=== PATIENT | female | born 1940 | race Caucasian/White ===

== ENCOUNTER 2018-11-25 13:33 | Inpatient (IN) | payer MEDICARE ==
[~2018-11-25] VITALS: Ht 175.3 cm; Wt 50.8 kg
--- OUTSIDE RECORDS SUMMARY | 2018-11-25 13:34 | XMS REPORT ---
[facility] Address Unknown Phone Unavailable Care Team Providers Care Billing Administrator Name Role Phone Unavailable Unavailable Payers Payer Name Policy Type Policy Number Effective Date Expiration Date Problems This patient has no known problems. Allergies, Adverse Reactions, Alerts Allergy Name Allergy Type Status Severity Reaction(s) Onset Date Inactive Date Treating Clinician Comments No Known Allergies DA Active U 2018-11-15 00:00:00 Medications This patient has no known medications. Results Test Description Test Time Test Comments Text Results Atomic Results Result Comments DRUGS OF ABUSE SCREEN UR 2018-11-15 05:48:00 URN COCAINE (test code=COCAURN) NEGATIVE NEGATIVE URN CANNABINOIDS (test code=CANNABURN) NEGATIVE NEGATIVE URN AMPHETAMINE (test code=AMPHETURN) NEGATIVE NEGATIVE URN BARBITURATE (test code=BARBITURN) NEGATIVE NEGATIVE URN BENZODIAZEPINE (test code=BENZOURN) NEGATIVE NEGATIVE Cut-off value:200 ng/mL URN OPIATES (test code=OPIATURN) NEGATIVE NEGATIVE Cut-off value:2000 ng/mL URN PHENCYCLIDINE (PCP) (test code=PHENCURN) NEGATIVE NEGATIVE Cutoffs:Barbiturates 200 ng/mLBenzodiazepines 200 ng/mLTHC Cannabinoids 50 ng/mLOpiates(Morphine) 2000 ng/mLAmphetamine 1000 ng/mLCocaine 300 ng/mLPCP phencyclidine 25 ng/mL Unconfirmed screening results shouldnot be used for non-medical purposes. URINALYSIS [id number] 05:24:00* Test Item Value Reference Range Comments UA COLOR (test code=COLU) YELLOW YEL/STRAW UA APPEARANCE (test code=APPU) SL CLOUDY CLEAR UA GLUCOSE DIPSTICK (test code=DGLUU) NEGATIVE NEGATIVE UA BILIRUBIN DIPSTICK (test code=BILU) NEGATIVE NEGATIVE UA KETONE DIPSTICK (test code=KETU) 2+ NEGATIVE UA SPECIFIC GRAVITY (test code=SGU) 1.018 1.005-1.030 UA BLOOD DIPSTICK (test code=WAGNER) 1+ NEGATIVE UA PH DIPSTICK (test code=NAYE) 5.0 5.0-7.0 UA PROTEIN DIPSTICK (test code=PROU) 1+ NEGATIVE UA UROBILINIOGEN DIPSTICK (test code=URO) 0.2 mg/dL 0.2-1.0 UA NITRITE DIPSTICK (test code=ROBER) NEGATIVE NEGATIVE UA LEUKOCYTE ESTERASE DIPSTICK (test code=LEUU) 3+ NEGATIVE UA WBC (test code=WBCU) 21-50 WBC/HPF 0-3 UA RBC (test code=RBCU) 4-10 RBC/HPF 0-3 UA BACTERIA (test code=BACU) TRACE /HPF NONE SEEN UA SQUAMOUS CELLS (test code=SQU) 0-5 /HPF NONE SEEN UA MUCUS (test code=MUCU) 1+ /LPF NONE SEEN COMMENTS: Clean CatchBASIC METABOLIC [id number] 04:38:00* Test Item Value Reference Range Comments SODIUM (test code=NA) 138 mEq/L 134-147 POTASSIUM (test code=K) 3.9 mEq/L 3.4-5.0 CHLORIDE (test code=CL) 103 mEq/L 100-108 CARBON DIOXIDE (test code=CO2) 26 mEq/L 21-33 ANION GAP (test code=GAP) 13 0-20 GLUCOSE (test code=GLU) 142 mg/dL 70-110 BLOOD UREA NITROGEN (test code=BUN) 16 mg/dL 7-18 GLOMERULAR FILTRATION RATE (test code=GFR) 60.6 70-80 Units of measure=ml/min/1.73 m2 CREATININE (test code=CREAT) 0.9 mg/dL 0.6-1.3 CALCIUM (test code=CA) 8.7 mg/dL 8.0-10.5 HEPATIC FUNCTION [id number] 04:38:00* Test Item Value Reference Range Comments TOTAL PROTEIN (test code=PROT) 7.2 g/dL 6.4-8.2 ALBUMIN (test code=ALB) 3.40 g/dL 3.4-5.0 BILIRUBIN TOTAL (test code=BILT) 1.10 mg/dL 0.0-1.0 BILIRUBIN DIRECT (test code=BILD) 0.20 MG/DL 0.0-0.30 BILIRUBIN INDIRECT (test code=BILIND) 0.90 MG/DL SGOT/AST (test code=AST) 35 IUnit/L 15-37 SGPT/ALT (test code=ALT) 33 IUnit/L 15-65 ALKALINE PHOSPHATASE TOTAL (test code=ALKP) 90 IUnit/L 20-125 CREATINE KINASE (CK)2018-11-15 04:38:00* Test Item Value Reference Range Comments CREATINE KINASE (CK) (test code=CK) 348 35-232 Result is in INTERNATIONAL UNITS/LITER [id number] 04:38:00* Test Item Value Reference Range Comments LIPASE (test code=LIP) 136 IUnit/L 73-393 [id number] 04:38:00* Test Item Value Reference Range Comments MAGNESIUM (test code=MAG) 1.80 mg/dL 1.8-2.4 [id number] 04:38:00* Test Item Value Reference Range Comments ALCOHOL (test code=ALC) < 0.003 G/dL <0.003 Ethyl Alcohol Interpretation: 0.100 gm/dL - Legally Intoxicated 0.300-0.400 gm/dL - Severely Intoxicated >0.400 gm/dL - Potentially LethalResults are for Medical purposes only, and not for Legal orEmployment evaluation purposes. BASIC METABOLIC [id number] 04:33:00* Test Item Value Reference Range Comments SODIUM (test code=NA) mEq/L 134-147 POTASSIUM (test code=K) mEq/L 3.4-5.0 CHLORIDE (test code=CL) mEq/L 100-108 CARBON DIOXIDE (test code=CO2) mEq/L 21-33 ANION GAP (test code=GAP) 0-20 GLUCOSE (test code=GLU) mg/dL 70-110 BLOOD UREA NITROGEN (test code=BUN) mg/dL 7-18 GLOMERULAR FILTRATION RATE (test code=GFR) 70-80 CREATININE (test code=CREAT) mg/dL 0.6-1.3 CALCIUM (test code=CA) mg/dL 8.0-10.5 HEPATIC FUNCTION [id number] 04:33:00* Test Item Value Reference Range Comments TOTAL PROTEIN (test code=PROT) g/dL 6.4-8.2 ALBUMIN (test code=ALB) g/dL 3.4-5.0 BILIRUBIN TOTAL (test code=BILT) mg/dL 0.0-1.0 BILIRUBIN DIRECT (test code=BILD) MG/DL 0.0-0.30 SGOT/AST (test code=AST) IUnit/L 15-37 SGPT/ALT (test code=ALT) IUnit/L 15-65 ALKALINE PHOSPHATASE TOTAL (test code=ALKP) IUnit/L 20-125 CREATINE KINASE (CK)2018-11-15 04:33:00* Test Item Value Reference Range Comments CREATINE KINASE (CK) (test code=CK) 35-232 [id number] 04:33:00* Test Item Value Reference Range Comments LIPASE (test code=LIP) IUnit/L 73-393 [id number] 04:33:00* Test Item Value Reference Range Comments MAGNESIUM (test code=MAG) mg/dL 1.8-2.4 [id number] 04:33:00* Test Item Value Reference Range Comments ALCOHOL (test code=ALC) < 0.003 G/dL <0.003 Ethyl Alcohol Interpretation: 0.100 gm/dL - Legally Intoxicated 0.300-0.400 gm/dL - Severely Intoxicated >0.400 gm/dL - Potentially LethalResults are for Medical purposes only, and not for Legal orEmployment evaluation purposes. BASIC METABOLIC [id number] 04:33:00* Test Item Value Reference Range Comments SODIUM (test code=NA) 138 mEq/L 134-147 POTASSIUM (test code=K) 3.9 mEq/L 3.4-5.0 CHLORIDE (test code=CL) 103 mEq/L 100-108 CARBON DIOXIDE (test code=CO2) 26 mEq/L 21-33 ANION GAP (test code=GAP) 13 0-20 GLUCOSE (test code=GLU) 142 mg/dL 70-110 BLOOD UREA NITROGEN (test code=BUN) 16 mg/dL 7-18 GLOMERULAR FILTRATION RATE (test code=GFR) 60.6 70-80 Units of measure=ml/min/1.73 m2 CREATININE (test code=CREAT) 0.9 mg/dL 0.6-1.3 CALCIUM (test code=CA) 8.7 mg/dL 8.0-10.5 HEPATIC FUNCTION [id number] 04:33:00* Test Item Value Reference Range Comments TOTAL PROTEIN (test code=PROT) g/dL 6.4-8.2 ALBUMIN (test code=ALB) 3.40 g/dL 3.4-5.0 BILIRUBIN TOTAL (test code=BILT) mg/dL 0.0-1.0 BILIRUBIN DIRECT (test code=BILD) 0.20 MG/DL 0.0-0.30 SGOT/AST (test code=AST) 35 IUnit/L 15-37 SGPT/ALT (test code=ALT) 33 IUnit/L 15-65 ALKALINE PHOSPHATASE TOTAL (test code=ALKP) IUnit/L 20-125 CREATINE KINASE (CK)2018-11-15 04:33:00* Test Item Value Reference Range Comments CREATINE KINASE (CK) (test code=CK) 35-232 [id number] 04:33:00* Test Item Value Reference Range Comments LIPASE (test code=LIP) 136 IUnit/L 73-393 [id number] 04:33:00* Test Item Value Reference Range Comments MAGNESIUM (test code=MAG) 1.80 mg/dL 1.8-2.4 [id number] 04:33:00* Test Item Value Reference Range Comments ALCOHOL (test code=ALC) < 0.003 G/dL <0.003 Ethyl Alcohol Interpretation: 0.100 gm/dL - Legally Intoxicated 0.300-0.400 gm/dL - Severely Intoxicated >0.400 gm/dL - Potentially LethalResults are for Medical purposes only, and not for Legal orEmployment evaluation purposes. PROTHROMBIN [id number] 04:22:00* Test Item Value Reference Range Comments PROTHROMBIN TIME PATIENT (test code=PTP) 12.5 SECONDS 9.3-12.9 INTERNATIONAL NORMAL RATIO (test code=INR) 1.1 0.8-1.2 TARGET INR BY INDICATION Indication INR1. Prophylaxis of venous thrombosis 2.0 - 3.0 (orthopedic surgery), Prophylaxis of venous thrombosis (other than high-risk surgery), Treatment of Deep Vein Thrombosis/Pulmonary Embolism, Prevention of systemic embolism - Tissue heart valves, Acute Myocardial Infarction (to prevent systemic embolism), Valvular heart disease, Atrial Fibrillation, Bileaflet mechanical valve in aortic position.2. Mechanical prosthetic valves (high risk), 2.5 - 3.5 Presence of Lupus Anticoagulant or Antiphospholipid Antibodies, Prevention of systemic embolism - Acute Myocardial Infarction (to prevent recurrent infarct). THROMBOPLASTIN TIME [id number] 04:22:00* Test Item Value Reference Range Comments THROMBOPLASTIN TIME PARTIAL (test code=PTT) 28.3 Seconds 25.0-39.5 Therapeutic Range: 61.8-83.8 Sec Effective 11/16/2013 CBC W/AUTO [id number] 04:12:00* Test Item Value Reference Range Comments WHITE BLOOD CELL (test code=WBC) 18.91 x10 3/uL 4.5-11.0 RED BLOOD CELL (test code=RBC) 4.24 x10 6/uL 3.54-5.02 HEMOGLOBIN (test code=HGB) 13.3 g/dL 11.0-15.0 HEMATOCRIT (test code=HCT) 40.7 % 33.0-45.0 MEAN CELL VOLUME (test code=MCV) 96.0 fL 81.0-99.0 MEAN CELL HGB (test code=MCH) 31.4 pg 27.0-33.0 MEAN CELL HGB CONCETRATION (test code=MCHC) 32.7 g/dL 33.0-37.0 RED CELL DISTRIBUTION WIDTH CV (test code=RDW) 11.9 % 11.5-14.5 RED CELL DISTRIBUTION WIDTH SD (test code=RDW-SD) 42.0 fL 37.0-54.0 PLATELET COUNT (test code=PLT) 236 x10 3/uL 150-400 MEAN PLATELET VOLUME (test code=MPV) 11.1 fL 7.0-9.0 NEUTROPHIL % (test code=NT%) 90.2 % 56.0-77.0 IMMATURE GRANULOCYTE % (test code=IG%) 0.6 % 0.0-2.0 LYMPHOCYTE % (test code=LY%) 3.4 % 14.0-32.0 MONOCYTE % (test code=MO%) 5.6 % 4.8-9.0 EOSINOPHIL % (test code=EO%) 0.0 % 0.3-3.7 BASOPHIL % (test code=BA%) 0.2 % 0.0-2.0 NUCLEATED RBC % (test code=NRBC%) 0.0 % 0-0 NEUTROPHIL # (test code=NT#) 17.07 x10 3/uL 2.0-7.6 IMMATURE GRANULOCYTE # (test code=IG#) 0.11 x10 3/uL 0.00-0.03 LYMPHOCYTE # (test code=LY#) 0.64 x10 3/uL 1.0-3.8 MONOCYTE # (test code=MO#) 1.05 x10 3/uL 0.1-0.8 EOSINOPHIL # (test code=EO#) 0.00 x10 3/uL 0.0-0.2 BASOPHIL # (test code=BA#) 0.04 x10 3/uL 0.0-0.2 NUCLEATED RBC # (test code=NRBC#) 0.00 x10 3/uL 0.0-0.1 MANUAL DIFF REQUIRED (test code=MDIFF) NO - XR CHEST 1 [id number] 03:18:00 FAX: Carlos Uribe MD [phone] [place]: St: REG Name: EPIFANIO CUBA [facility] : [birth year] Age/S: 77/F [address] [place] [address] Unit #: [id number] Loc: [place] [address] Phys: Carlos Mariscal MD Acct: [id number] Dis Date: Status: REG ER PHONE #: [phone] Exam Date: 11/15/2018 0304 FAX #: [phone] Reason: Seizure Adult EXAMS: CPT CODE: [id number] XR CHEST 1 V 53612 Chest, single view dated 11/15/2018. HISTORY: Weakness. Seizure. Fall. No prior studies are available comparison. The heart is normal in size. The car diomediastinal shadow appears within normal limits. The lungs appear lisa r of acute disease. The pulmonary vasculature is normal in caliber. No a cute pleural space abnormalities are identified. The bones are osteopenic . Two vertebral compression deformities are noted at the thoracolumbar junction and are of indeterminant age. IMPRESSION: 1. No radiographic evidence of acute cardiopulmonary disease. 2. Two ve rtebral compression deformities are noted at the thoracolumbar junction, age indeterminate. SL: 131 Electronically S igned by Dhiraj Rueda on 11/15/2018 at 0318 Reported and signed by: Jass Rueda M.D. CC: Carlos Mariscal MD Technologist: Ric Kingston Trnmird Date/Time/By: 11/15/2018 (031) : By: Khadar [facility] Print D/T: S: 11/15/2018 (0321) PAGE 1 Signed Report [id number] 02:41:00* Test Item Value Reference Range Comments GLUBED (test code=GLUBED) 154 MG/DL 70-110 Performed by certified gripper machine operator at [facility] - CT HEAD/BRAIN W/O [id number] 00:00:00 Name: EPIFANIO NINA [facility] : 1940 Age/S: 77 / F [address] [place] [address] Unit #: [id number] Loc: [place] [address] Phys: Carlos Mariscal MD Acct: [id number] Dis Date: Status: REG ER PHONE #: [phone] Exam Date: 11/15/2018 0256 FAX #: [phone] Reason: Seizure EXAMS: CPT CODE: [id number] CT HEAD/BRAIN W/O CONT [id number] EXAM: CT Head Without Contrast EXAM DATE/TIME: 11/15/2018 2:24 AM CLINICAL HISTORY: 77 years old, female; Pain; Headache; Additional info: Seizure TECHNIQUE: Axial computed tomography images of the head/brain without contrast. All CT scans at this facility use at least one of these dose optimization techniques: automated exposure control; mA and/or kV adjustment per patient size (includes targeted exams where dose is matched to clinical indication); or iterative reconstruction. Coronal and sagittal reformatted images were created and reviewed. COMPARISON: No relevant prior studies available. FINDINGS: Brain: Minimal decreased attenuation of the supratentorial white matter is likely secondary to chronic microvascular ischemia. No acute intracranial hemorrhage. Ventricles: Ventricular and subarachnoid spaces are age appropriate. Bones/joints: Normal. No acute fracture. Sinuses: Normal as visualized. No acute sinusitis. Mastoid air cells: Normal as visualized. No mastoid effusion. Soft tissues: Normal. Vasculature: Intracranial vascular calcification. IMPRESSION: No acute intracranial abnormality. at 0348 Reported and signed by: Chris Bear M.D. PAGE 1 Signed Report (CONTINUED) Name: EPIFANIO NINA [facility] : 1940 Age/S: 77 / F [address] [place] [address] Blvd Unit #: [id number] Loc: [place] [address] Phys: Carlos Mariscal MD Acct: [id number] Dis Date: Status: REG ER PHONE #: [phone] Exam Date: 11/15/2018 0256 FAX #: [phone] Reason: Seizure EXAMS: CPT CODE: [id number] CT HEAD/BRAIN W/O CONT [id number] <Continued> CC: Carlos Mariscal MD Technologist:RT Bennie(R) CTDI: DLP: Trnscb Date/Time: 11/15/2018 (347) [id number] Orig Print D/T: S: 11/15/2018 (347) CTDI: DLP: PAGE 2 Signed Report
--- NOTE | 2018-11-25 15:01 | Diagnostic Imaging Report ---
Examination: CT head without contrast Clinical Indication: Confusion. Altered mental status. Technique: Transaxial noncontrast images from the skull base through the vertex were obtained. Sagittal and coronal reformatted images were done. Dose modulation, iterative reconstruction, and/or weight based adjustment of the mA/kV was utilized to reduce the radiation dose to as low as reasonably achievable. Comparison: None. Findings: Scalp: No abnormalities. Bones: Intact. No fractures. No blastic or lytic lesions. Brain sulci: Mild volume loss for patient's age. Ventricles: No hydrocephalus. Extra-axial space: No abnormalities. Parenchyma: No abnormal densities. No masses, hemorrhage, or acute or chronic cortical based vascular insults. Suprasellar region: No abnormalities. Craniocervical junction: The foramen magnum is patent. No Chiari one malformation. Impression: 1. No acute intracranial abnormality. 2. Mild volume loss. Signed by: Dr. Kim White M.D. on 11/25/2018 2:58 PM
[2018-11-25 15:23] LABS: BASOPHILS # (AUTO) 0.1 (0.0-0.1); BASOPHILS % 0.7 % (0.0-1.0); EOSINOPHILS # (AUTO) 0.1 (0.0-0.4); EOSINOPHILS % 0.7 % (0.0-6.0); HEMATOCRIT 35.7 % (34.2-44.1); HEMOGLOBIN 11.7 g/dL (12.0-16.0); LYMPHOCYTES # (AUTO) 1.3 (1.0-3.2); LYMPHOCYTES % 11.7 % (18.0-39.1); MEAN CORPUSCULAR HEMOGLOBIN 30.2 pg (28-32); MEAN CORPUSCULAR HGB CONC 32.8 g/dL (31-35); MEAN CORPUSCULAR VOLUME 92.2 fL (81-99); MONOCYTES # (AUTO) 0.8 (0.2-0.8); MONOCYTES % 7.3 % (4.4-11.3); NEUTROPHILS % 78.9 % (38.7-80.0); PLATELET COUNT 542 x10e3/uL (140-360); RED BLOOD COUNT 3.87 x10e6/uL (3.6-5.1); RED CELL DISTRIBUTION WIDTH 12.3 % (11.7-14.4)
[2018-11-25 15:37] LABS: ALANINE AMINOTRANSFERASE 23 IU/L (0-55); ALBUMIN 2.8 g/dL (3.5-5.0); ALBUMIN/GLOBULIN RATIO 0.9 (0.8-2.0); ALKALINE PHOSPHATASE 88 IU/L (40-150); ANION GAP 12.5 mmol/L (8-16); BLOOD UREA NITROGEN 20 mg/dL (7-26); BUN/CREATININE RATIO 29 (6-25); CALCIUM 8.9 mg/dL (8.4-10.2); CARBON DIOXIDE 25 mmol/L (22-29); CHLORIDE 103 mmol/L (98-107); CREATINE KINASE 78 IU/L (29-168); EST GLOMERULAR FILTRATION RATE > 60 ML/MIN (60-); GLUCOSE 101 mg/dL (74-118); POTASSIUM 4.5 mmol/L (3.5-5.1); SODIUM 136 mmol/L (136-145)
[2018-11-25 16:13] LABS: CLARITY,URINE HAZY (CLEAR); COLOR,URINE YELLOW (YELLOW); LEUKOCYTE ESTERASE ,URINE TRACE (NEGATIVE); NITRITE,URINE NEGATIVE (NEGATIVE); PROTEIN,URINE DIPSTICK TRACE (NEGATIVE)
[2018-11-25 16:14] LABS: BACTERIA,URINE MODERATE /HPF; BILIRUBIN,URINE NEGATIVE (NEGATIVE); EPITHELIAL CELLS,URINE MODERATE /LPF; KETONES,URINE NEGATIVE (NEGATIVE); MUCUS,URINE FEW (RARE); RBC,URINE 0-5 /HPF (0-5); URINE UROBILINOGEN 0.2 mg/dL (0.2 - 1)
[2018-11-25] MEDS: CEFTRIAXONE SOD 1 GM/NS 50 ML 50 ML IV SCH (16:30)
[2018-11-25 17:59] LABS: AMPHETAMINES SCREEN,URINE NEGATIVE (NEGATIVE); BENZODIAZEPINES SCREEN,URINE NEGATIVE (NEGATIVE); PHENCYCLIDINE SCREEN,URINE NEGATIVE (NEGATIVE)
[2018-11-25 18:19] LABS: THYROID STIMULATING HORMONE 3.641 uIU/mL (0.350-4.940)
--- NOTE | 2018-11-25 18:30 | NUR ---
Pt received from ER via stretcher. Alert and oriented x2, pleasantly confused. Pt oriented to staff and surroundings. Encouraged to press call jaeger if help needed. Emotional support given. Will endorse to next shift
[2018-11-25 18:37] VITALS: BP 110/59
--- NOTE | 2018-11-25 19:20 | NUR ---
ROUNDS COMPLETED WITH MORNING NURSE. PT ALERT TO NAME. DISORIENTED TO PLACE, TIME, AND SITUATION. RESP EVEN AND UNLABORED. C/O RIGHT LEG PAIN UPON MOVEMENT. ORIENTED TO CALL [facility]. BED LOW AND LOCKED POSITION. BED ALARM ON. WILL CONTINUE TO MONITOR.
[2018-11-25 19:45] VITALS: BP 103/55
[2018-11-25 20:00] VITALS: BP 103/55
--- NOTE | 2018-11-25 20:06 | NUR ---
SPOKE WITH DR. GRAFF REGARDING PTs RIGHT LEG PAIN. ORDERED TYLENOL 650MG PO EVERY 8 HOURS PRN PAIN.
[2018-11-25] MEDS: ACETAMINOPHEN 325 MG TAB PO PRN (20:55)
[2018-11-26] VITALS (8 sets, daily range): BP systolic 103–119; BP diastolic 51–57
--- NOTE | 2018-11-26 01:16 | Consultation ---
DATE OF CONSULTATION: November 25, 2018 NEUROLOGY CONSULTATION HISTORY OF PRESENT ILLNESS: Ms. Fountain is a 78-year-old right hand dominant woman without significant past medical history, admitted to [facility] on November 25, 2018, with confusion and difficulty walking. On November 15, 2018, the patient fell at approximately 0300 while taking her trash to the curb. The cause of Ms. Fountain's fall is unknown. She was subsequently found by the man who delivers her newspaper. This person alerted emergency medical services and Ms. Fountain was taken to [facility] for evaluation. The result of the patient's evaluation in the emergency center are not known. The patient's son, who is at the bedside and provides most of the history, reports receiving a telephone call at approximately 0630 in the morning informing him his mother was ready to be discharged from the emergency center. Since her fall, Ms. Fountain has stayed with her son at his home. During this time, Ms. Fountain's son reports the patient has been confused and disoriented. Unfortunately, when questioned further, the patient's son is unable to provide additional details. When asked when the confusion began, the patient's son reports the confusion may have started 2 or 3 months ago as this was the last time he saw his mother. Since her fall on November 15, 2018, the patient has been unable to walk. She reports pain in her legs, especially her right leg, which prohibits her from walking. Unfortunately, neither the patient nor her son is able to further describe her symptoms. Ms. Fountain was brought to the emergency center at [facility] on November 25, 2018, for further evaluation of the above symptoms. The patient's son reports Ms. Jamess symptoms did not significantly worsen recently. However, he is concerned regarding her confusion and the fact she has been unable to walk for the past week and a half. Upon arrival in the emergency center, the patient was afebrile with a blood pressure of 118/53 mmHg and a pulse of 85 beats per minute. Other than disorientation, the patient's neurological examination was documented as being nonfocal. A CT of the brain without contrast was performed while the patient was in the emergency center. This study did not show evidence of recent large territorial ischemia or hemorrhage. Ms. Fountain will be admitted to [facility] for further evaluation and treatment of her symptoms. REVIEW OF SYSTEMS: Unable to obtain as the patient is encephalopathic. PAST MEDICAL HISTORY: None. PAST SURGICAL HISTORY: None. PAST HOSPITALIZATIONS: None. FAMILY MEDICAL HISTORY: The patient's paternal and maternal grandparents are . Their medical histories are unknown. The patient's father is . His medical history is unknown. Ms. Fountain's mother is from Parkinson disease. The patient has one sibling, a brother, who is alive. His medical history is unknown. The patient had 2 sons. One son is from a motor vehicle accident. The second son is alive and healthy. SOCIAL HISTORY: Ms. Fountain is . She lives on her own. The patient is retired. There is no reported current or prior tobacco, alcohol, or recreational drug use. HOME MEDICATIONS: None. ALLERGIES: NO KNOWN DRUG ALLERGIES. NO KNOWN FOOD ALLERGIES. NO KNOWN ALLERGIES TO LATEX. NO KNOWN ALLERGIES TO IODINE OR OTHER CONTRAST MATERIALS. PHYSICAL EXAMINATION VITAL SIGNS: Height 59 inches, weight 90 pounds, BMI 18.2 kg per meter squared, blood pressure 115/59 mmHg, pulse 80 beats per minute, respiratory rate 16 breaths per minute, oxygen saturation 99% on room air. GENERAL: The patient is awake and alert. Does not appear distressed. HEENT: Normocephalic, atraumatic. Pupils are equal, round and reactive to light. Moist mucous membranes. NECK: Supple. No appreciable thyromegaly. No appreciable carotid bruits. CARDIOVASCULAR: S1, S2, regular rate and rhythm. A low-grade systolic ejection murmur is appreciated. RESPIRATORY: Clear to auscultation bilaterally. No wheezes, rhonchi or rales. EXTREMITIES: The skin is warm and dry. No clubbing, cyanosis, or edema. The posterior tibial and dorsalis pedis pulses are 2+ and symmetric. There is pain in the right hip and right knee with internal and external rotation of the right leg. SKIN: No rashes or lesions. NEUROLOGIC Memory/Attention: The patient is awake and alert. Oriented to person, place (hospital, but not which hospital, city, state), time (day of the week and month), but not the situation. Cranial Nerves: Cranial nerve I--not tested. Cranial nerve II, III, IV, and --pupils are equal and round, react briskly to light (from 4 mm to 2 mm). Extraocular movements intact. No nystagmus. Cranial nerve V--sensation to light touch is intact in the bilateral V1 through V3 distributions. Strength of the temporalis and masseter muscles is within normal limits. Cranial nerve VII--the face is symmetric as are all facial movements. Strength is within normal limits. Cranial nerve VIII--hearing is diminished to finger rub bilaterally. Cranial nerve IX, X--the soft palate elevates equally and symmetrically. Cranial nerve XI--normal strength of the bilateral sternocleidomastoid and trapezius muscles. Cranial nerve XII--the tongue protrudes in midline and moves symmetrically from side to side. Strength: Bulk is normal. Strength is 5/5 in the bilateral deltoids, biceps, triceps, wrist flexors and extensors, finger flexors and extensors, intrinsic hand muscles, hip flexors, knee flexors and extensors, ankle dorsiflexion and plantar flexion, and intrinsic foot muscles except as follows: Ms. Fountain refuses to move her right leg secondary to pain. Ankle dorsiflexion and plantar flexion is 5/5. Right foot intrinsic muscles are 5/5. Tone is normal in all 4 extremities. DTRs: Deep tendon reflexes are 3+ and symmetric at the triceps, biceps, and brachioradialis. Deep tendon reflexes are 2+ and symmetric at the patellas. Deep tendon reflexes are absent and symmetric at the Achilles. Plantar responses are flexor bilaterally. Sensation: Sensation is intact to light touch in both arms and both legs. Cerebellar: Unable to assess secondary to the patient being encephalopathic. Gait: Deferred. Speech: Spontaneous speech is normal without appreciable dysarthria or aphasia. Repetition is intact. Involuntary Movements: None. Pronator Drift: As per motor exam. LABORATORY DATA: A comprehensive metabolic panel is significant for a total protein of 6.0 and an albumin of 2.8. The CBC with differential and platelets reveals a white blood cell count of 11.41 with a right shift with 78.9% neutrophils, 11.7% lymphocytes, 7.3% monocytes, 0.7% eosinophils, and 0.7% basophils. A urinalysis is significant for trace protein, trace leukocyte esterase, moderate urine epithelials cells, moderate urine bacteria, and 6 to 10 white blood cells. A urine culture has been collected and is pending. DIAGNOSTIC STUDIES: CT of the brain without contrast, 11/25/2008: There is no evidence of recent large territorial ischemia, hemorrhage, mass, or mass effect. There is diffuse cerebral atrophy with compensatory dilatation of the ventricles, slightly more than is expected for the patient's age. There are no findings suggestive of chronic small vessel ischemic disease. ASSESSMENT AND PLAN: Ms. Fountain is a 78-year-old right hand dominant woman without significant past medical history admitted to [facility] with encephalopathy and right leg pain inhibiting gait. The patient has undergone a thorough neurological examination with findings detailed above. Her laboratory data and other diagnostic studies have been reviewed and are documented above. RECOMMENDATIONS 1. Encephalopathy: The patient's encephalopathy is probably secondary to her urinary tract infections. However, additional blood and urine studies will be ordered to evaluate for other possible treatable causes of encephalopathy. This will include: Thyroid stimulating hormone, ammonia, vitamin B1 level, vitamin B6 level, vitamin B12 level, folate, methylmalonic acid, RPR, blood alcohol level, urine drug screen, and blood cultures x2. 2. Avoid sedative/hypnotic and pain medications as these will alter the sensorium. 3. Utilize environmental cues to combat delirium. 4. Right leg pain: Pain with internal and external rotation of the right leg indicates a probable musculoskeletal etiology. Therefore, the evaluation and treatment of right leg pain as well as all other comorbidities will be deferred to the primary and other services following the patient. Thank you for this consultation. I will continue to follow this patient while she remains in the hospital. TIME SPENT: 70 minutes. Job#: [id number] MARILIN JACOME
--- NOTE | 2018-11-26 07:20 | NUR ---
PATIENT IN BED RESTING WITH NO RESPIRATORY DISTRESS. ALL PERSONAL ITEMS CLOSE TO PATIENT. BED IN LOWER POSITION, CALL LIGHT AT REACH. INSTRUCTED TO CALL FOR ASSISTANCE NEEDED WITH RETURN DEMONSTRATION.
--- NOTE | 2018-11-26 08:41 | History and Physical ---
CHIEF COMPLAINT: Patient unable to walk secondary to right leg pain and increased confusion since the last few weeks. HISTORY OF PRESENT MEDICAL ILLNESS: A 78-year-old pleasant white female with a past medical history of no significant medical problem was admitted at [facility] last evening with the above complaints. Patient was seen in my office yesterday morning with the above complaints for the first time. The patient was seen for the first time in my office yesterday with the above complaints. History with the help of son. The patient is a poor historian. As per son, on November 07, 2018, the patient in the junior graphic designer at 3 o'clock was trying to take the trash out and fell at the curb side at her apartment. EMS was called. The patient was sent to [facility] ER. After investigation and treatment, the patient was discharged home. As per son, the patient is unable to walk due to right leg pain since then. Also, as per the patient, the patient is getting more confused since the last few weeks. As per patient, since last few months or year, the patient's memory is getting worse. At present, the patient is lying comfortably in bed. No apparent distress. No chest pain. No shortness of breath. No nausea , vomiting or diarrhea. No abdominal pain. No loss of consciousness. No palpitations. No headaches. No hematemesis. No melena. No hematuria or dysuria. No fever. No cough. No witnessed seizures. PAST MEDICAL HISTORY: None. MEDICATIONS: None. SURGICAL HISTORY: None. FAMILY HISTORY: Noncontributory. SOCIAL HISTORY: No smoking. No alcohol. No illicit drug use. Lives alone in an apartment complex. ALLERGIES: NO KNOWN DRUG ALLERGIES. REVIEW OF SYSTEMS: As per HPI. PHYSICAL EXAMINATION GENERAL: The patient is alert, awake and oriented times 2, and in no apparent distress lying in bed. VITALS: Temperature is 97, pulse is 70 per minute, respiratory rate 18 per minute, blood pressure is 107/60, saturation is 97%. GENERAL: No signs of icterus. No pallor. HEENT: Normocephalic and atraumatic. PERRLA. NECK: Soft and supple. No JVD. No lymphadenopathy. LUNGS: Air entry bilaterally equal. No rales or rhonchi. HEART: Regular rate and rhythm. No murmur, gallop or rub. ABDOMEN: Soft and nontender. Bowel sounds plus. RETAIL SERVICE REPRESENTATIVE: Alert, awake and oriented times 2. Moves extremities. EXTREMITIES: No cyanosis. No clubbing. No edema. There is no calf pain. Right-sided thigh groin tenderness plus. LABS: On admission to ER, white count 11.4, hemoglobin 11.7, hematocrit 35.7, and platelets 542,000. Sodium 136, potassium 4.5, chloride 103, bicarb 25, BUN 20, creatinine 0.7 glucose 101. LFTs noted. Cardiac enzymes times 1 negative. Toxicology negative. Urine shows wbcs 6-10, bacteria moderate. Cultures pending. CT of head shows no acute intra-cranial abnormality and mild volume loss. ASSESSMENT 1. Metabolic encephalopathy with underlying possible Alzheimer's dementia likely due to urinary tract infection. 2. Right leg pain: Status post fall. PLAN: Admit patient to medical floor. Rocephin1 g IVPB daily. Pancultures. Neurology consultation with Dr. Judy Lara. X-ray of right hip. X-ray of right femur. Venous Doppler of legs. Orthopedic consultation with Dr. Oconnor for right leg pain. Further care and treatment as per the course of the patient in the hospital. Also, will get case management involved earlier because as per son the patient cannot take care of herself at home. She is high risk to be alone at home. Will have case management for placement help. Job#: [id number] JUDY
--- NOTE | 2018-11-26 10:30 | NUR ---
PATIENT OFF UNIT TO RADIOLOGY.
--- NOTE | 2018-11-26 11:05 | NUR ---
PATIENT BACK TO UNIT FROM RADIOLOGY. REPOSITIONED IN BED, CALL LIGHT AT REACH.
--- NOTE | 2018-11-26 11:46 | Diagnostic Imaging Report ---
Exam: Right hip radiographs-2 views; left hip radiographs-2 views; AP radiograph of the pelvis-single view; right femur radiographs-2 views History: Right groin/hip pain Comparison: None. Findings: Right hip and femur: There is a displaced right subcapital/transcervical right femoral neck fracture. There is approximately 1.1 cm in maximal displacement inferiorly and laterally. There are tiny comminuted fracture fragments involving the right femoral head along the inferior aspect. There is a mildly sclerotic appearance of the right femoral head. No evidence of fracture involving the mid or distal femur. Left hip: No evidence of acute fracture, malalignment, or soft tissue abnormality. Mild degenerative changes of the left hip. Pelvis: No additional pelvic fractures identified. Bowel gas partially obscures visualization of the sacrum. Mild degenerative changes of lower lumbar spine, pubic symphysis, and bilateral sacroiliac joints. Impression: Displaced right subcapital/transcervical right femoral neck fracture. Small comminuted fragments involving the femoral head with a sclerotic appearance, which may represent avascular necrosis. The above findings were discussed with primary referring physician Dr. Yonny Siu on 11/26/2018 at 12:14 PM, who responded indicating that the communication was understood. Signed by: Dr. Diana Joseph MD on 11/26/2018 12:17 PM
--- NOTE | 2018-11-26 15:04 | NUR ---
SPOKE WITH SON AND GAVE THE CHOICES IN NETWORK. HE WILL LOOK AT THE FACILITIES IN [facility] AND LET KNOW WHICH HE CHOOSES.
--- NOTE | 2018-11-26 15:26 | NUR ---
CALL RECEIVED FROM DR ANDREWS STATING THAT PATIENT HAS A RIGHT HIP FRACTURE AND SHOULD BE ON COMPLETE BED REST. NEW ORDERS RECEIVED.
[2018-11-26] MEDS: CEFTRIAXONE SOD 1 GM/NS 50 ML 50 ML IV SCH (17:13)
[2018-11-26] MEDS: ENOXAPARIN SOD INJ 40 MG/0.4 ML SYR SC SCH (17:13)
--- NOTE | 2018-11-26 18:17 | NUR ---
Nutrition Intervention Note RD Recommendation(s) for Physician: -Continue cardiac diet as ordered -Rec Ensure Enlive BID due to hx of weight loss (underweight) Plan of Care: RD following, monitoring for tolerance and adequacy, ONS rec Nutrition reason for involvement: Nutrition Risk Trigger MST RD Assessment 11/26 78 yo F, who is admitted s/p fall at home. Visited pt in the room. Unable to obtain hx from pt due to AMS. Son on bedside provided hx. Per son, pt hasnt been drinking or eating much for the last 3-4 months. Son thinks that pt has lost ~10% since then. Reported UBW ~104lbs. No GI complains noted today. Pt was able to chew and swallow without any issue. Will continue to monitor and follow. Principal Problems/Diagnoses: 1. Metabolic encephalopathy with underlying possible Alzheimer's dementia likely due to urinary tract infection. 2. Right leg pain: Status post fall. PMH: none GI: Abdomen soft, non-tender, LBM 11/26 Skin: Stage I left sacrum wound, per RN Labs: reviewed Meds: Lovenox Ht: 59in Wt: 90lb BMI: 18.2kg/m2 IBW: 95lb Malnutrition Evaluation (11/26/2018) The patient meets criteria for MODERATE protein-calorie malnutrition. Energy intake: <75% of estimated energy requirements for >3 months Weight loss: >7.5% in 3 months (Acute) Fat loss: Moderate clavicle protrusion Muscle loss: Moderate temporal depression Supporting Evidence: Fluid accumulation: unable to evaluate Functional Status: measurably reduced Nutrition Prescription (Diet Order): cardiac diet Estimated Nutritional Needs: Calories: 1230 1435kcal(30-35kcal/kg/d) Weight used : current BW Protein: 62 82g (1.5-2g/kg/d) Weight used: current BW Diet Adequacy: N/A Diet Education Needs Assessment: Diet education indicated, but patient not appropriate for education at this time. Nutrition Care Level: mod Nutrition Diagnosis: Malnutrition related to chronic illness as evidenced by weight loss and decreased meal intake DIGITAL MEDIA REPRESENTATIVE. Goal: Patient will meet 75-100% of estimated needs by follow up Progress: Progressing Interventions: mineral-modified diet, Commercial beverage Monitoring/Evaluation: Total energy intake, Total protein intake, Modified diet, Liquid supplement, Weight change Signed: Darcie Morgan MS, RD, LD
[2018-11-26] MEDS ORDERED: CYANOCOBALAMIN INJ 1,000 MCG/ML VIAL IM SCH (18:30)
--- NOTE | 2018-11-26 19:30 | NUR ---
PT IS RESTING IN BED WITH FAMILY AT BEDSIDE. NO RESPIRATORY DISTRESS NOTED. BED IN THE LOWEST POSITION, LOCKED, BED ALARM ON, AND CALL LIGHT WITHIN REACH. WILL CONTINUE TO MONITOR.
[2018-11-27] VITALS (8 sets, daily range): BP systolic 100–108; BP diastolic 51–61
[2018-11-27 06:18] LABS: BASOPHILS # (AUTO) 0.1 (0.0-0.1); BASOPHILS % 0.8 % (0.0-1.0); EOSINOPHILS # (AUTO) 0.1 (0.0-0.4); EOSINOPHILS % 1.4 % (0.0-6.0); HEMATOCRIT 32.3 % (34.2-44.1); LYMPHOCYTES # (AUTO) 1.7 (1.0-3.2); LYMPHOCYTES % 18.5 % (18.0-39.1); MEAN CORPUSCULAR HEMOGLOBIN 30.8 pg (28-32); MEAN CORPUSCULAR HGB CONC 34.1 g/dL (31-35); MEAN CORPUSCULAR VOLUME 90.5 fL (81-99); MONOCYTES # (AUTO) 0.6 (0.2-0.8); MONOCYTES % 6.8 % (4.4-11.3); NEUTROPHILS # (AUTO) 6.6 (2.1-6.9); NEUTROPHILS % 71.8 % (38.7-80.0); PLATELET COUNT 497 x10e3/uL (140-360); RED BLOOD COUNT 3.57 x10e6/uL (3.6-5.1); RED CELL DISTRIBUTION WIDTH 11.9 % (11.7-14.4)
[2018-11-27 06:35] LABS: ALANINE AMINOTRANSFERASE 15 IU/L (0-55); ALBUMIN 2.5 g/dL (3.5-5.0); ALBUMIN/GLOBULIN RATIO 0.8 (0.8-2.0); ALKALINE PHOSPHATASE 88 IU/L (40-150); ANION GAP 13.1 mmol/L (8-16); BLOOD UREA NITROGEN 16 mg/dL (7-26); BUN/CREATININE RATIO 22 (6-25); CALCIUM 8.7 mg/dL (8.4-10.2); CARBON DIOXIDE 25 mmol/L (22-29); CHLORIDE 102 mmol/L (98-107); CREATININE, SERUM 0.74 mg/dL (0.57-1.11); EST GLOMERULAR FILTRATION RATE > 60 ML/MIN (60-); GLUCOSE 100 mg/dL (74-118); POTASSIUM 4.1 mmol/L (3.5-5.1); SODIUM 136 mmol/L (136-145)
--- NOTE | 2018-11-27 07:17 | NUR ---
PATIENT IN BED RESTING WITH NO RESPIRATORY DISTRESS. JEY HOSE AND SCDS TO LOWER EXTREMITIES. TRACTION TO RIGHT LEG. ALL PERSONAL ITEMS CLOSE TO PATIENT, CALL LIGHT AT REACH.
[2018-11-27] MEDS: CYANOCOBALAMIN INJ 1,000 MCG/ML VIAL IM SCH (08:00)
--- NOTE | 2018-11-27 11:50 | NUR ---
PATIENT ASSISTED WITH DIAPER CHANGE. TRACTION INTACT TO RIGHT LEG. CALL LIGHT AT EASY REACH.
--- NOTE | 2018-11-27 16:06 | NUR ---
MD IN TO SEE PATIENT, NO NEW ORDER RECEIVED.
[2018-11-27] MEDS: FAMOTIDINE 20 MG TAB PO SCH (16:30)
[2018-11-27] MEDS: CEFTRIAXONE SOD 1 GM/NS 50 ML 50 ML IV SCH (16:30)
[2018-11-27] MEDS: ENOXAPARIN SOD INJ 40 MG/0.4 ML SYR SC SCH (17:21)
[2018-11-28] VITALS (7 sets, daily range): BP systolic 96–109; BP diastolic 55–85
--- NOTE | 2018-11-28 06:44 | NUR ---
patient condition throughout the night was stable. patient endorsed to next shift for continuity of care.
--- NOTE | 2018-11-28 07:15 | NUR ---
PATIENT IN BED RESTING WITH NO RESPIRATORY DISTRESS. DENIED PAIN AT THIS TIME. TRACTION INTACT TO RIGHT LEG. BED IN LOWER POSITION, CALL LIGHT AT REACH.
[2018-11-28] MEDS: FAMOTIDINE 20 MG TAB PO SCH ×2 (07:30→16:30)
--- NOTE | 2018-11-28 12:01 | NUR ---
PATIENT ASSISTED WITH DIAPER CHANGE, HAD A LARGE BM. REPOSITIONED IN BED. BRAY TRACTION IN PLACE.
--- NOTE | 2018-11-28 16:07 | NUR ---
PATIENT IN BED WITH HEAD OF BED ELEVATED TALKING TO FAMILY MEMBER VISITING. ALL PERSONAL ITEMS CLOSE TO PATIENT. CALL LIGHT AT REACH.
[2018-11-28] MEDS: CEFTRIAXONE SOD 1 GM/NS 50 ML 50 ML IV SCH (16:30)
[2018-11-28] MEDS: ENOXAPARIN SOD INJ 40 MG/0.4 ML SYR SC SCH (17:26)
--- NOTE | 2018-11-28 19:20 | NUR ---
Received patient from day nurse, patient is alert but confused, introduced self to patient, safety and fall precaution maintained as per hospital protocol: bed in lowest position and locked, needed items beside bed and call jaeger placed within patient reach, patient instructed to use it to call nurses for any assistance needed, patient verbalized understanding. patient in bucks traction, care and assessment done, no complication noted, patient is currently stable, will continue to monitor.
[2018-11-29] VITALS (7 sets, daily range): BP systolic 99–114; BP diastolic 58–71
[2018-11-29 06:15] LABS: BASOPHILS # (AUTO) 0.1 (0.0-0.1); BASOPHILS % 0.8 % (0.0-1.0); EOSINOPHILS # (AUTO) 0.2 (0.0-0.4); HEMATOCRIT 33.5 % (34.2-44.1); HEMOGLOBIN 11.2 g/dL (12.0-16.0); LYMPHOCYTES # (AUTO) 1.9 (1.0-3.2); LYMPHOCYTES % 17.5 % (18.0-39.1); MEAN CORPUSCULAR HEMOGLOBIN 30.4 pg (28-32); MEAN CORPUSCULAR HGB CONC 33.4 g/dL (31-35); MEAN CORPUSCULAR VOLUME 90.8 fL (81-99); MONOCYTES # (AUTO) 0.8 (0.2-0.8); MONOCYTES % 7.2 % (4.4-11.3); NEUTROPHILS # (AUTO) 7.6 (2.1-6.9); NEUTROPHILS % 71.8 % (38.7-80.0); PLATELET COUNT 521 x10e3/uL (140-360); RED BLOOD COUNT 3.69 x10e6/uL (3.6-5.1); RED CELL DISTRIBUTION WIDTH 11.9 % (11.7-14.4)
[2018-11-29 06:32] LABS: ALANINE AMINOTRANSFERASE 14 IU/L (0-55); ALBUMIN 2.5 g/dL (3.5-5.0); ALBUMIN/GLOBULIN RATIO 0.7 (0.8-2.0); ALKALINE PHOSPHATASE 128 IU/L (40-150); ANION GAP 13.3 mmol/L (8-16); BLOOD UREA NITROGEN 14 mg/dL (7-26); BUN/CREATININE RATIO 19 (6-25); CALCIUM 8.8 mg/dL (8.4-10.2); CARBON DIOXIDE 24 mmol/L (22-29); CHLORIDE 101 mmol/L (98-107); CREATININE, SERUM 0.72 mg/dL (0.57-1.11); EST GLOMERULAR FILTRATION RATE > 60 ML/MIN (60-); GLUCOSE 98 mg/dL (74-118); POTASSIUM 4.3 mmol/L (3.5-5.1); SODIUM 134 mmol/L (136-145)
--- NOTE | 2018-11-29 07:00 | NUR ---
patient condition throughout the night was stable, patient endorsed to next shift for continuity of care.
--- NOTE | 2018-11-29 07:30 | NUR ---
PT IN BED RESTING NO DISTRESS NOTED,[address] IN [address],PT DENIES PAIN.
[2018-11-29] MEDS: FAMOTIDINE 20 MG TAB PO SCH ×2 (08:00→17:01)
--- NOTE | 2018-11-29 12:45 | NUR ---
SPOKE WITH SON RE;MOM POSSIBKE SURGERY,STATED HE SPOKE WITH DR ANDREWS OVER WEEKEND,POSSIBLE SURGERY LATER ON IN WEEK
--- NOTE | 2018-11-29 16:12 | NUR ---
ATTEMPTED TO FOLLOW UP TO FIND OUT CHOICE, UNABLE TO REACH SON AND HE IS NOT IN ROOM.
[2018-11-29] MEDS: ENOXAPARIN SOD INJ 40 MG/0.4 ML SYR SC SCH (17:01)
[2018-11-29] MEDS: CEFTRIAXONE SOD 1 GM/NS 50 ML 50 ML IV SCH (17:01)
--- NOTE | 2018-11-29 17:41 | NUR ---
PT UP IN BED ,BUCKS TRACTION IN PLACE,NO S/S DISCOMFORT
--- NOTE | 2018-11-29 19:30 | NUR ---
patient recieved awake, alert, lying quietly in bed. no c/o pain noted. 5lbs bucks traction remains to right lower extremity. pm assessment complete. sr up x 3. call jaeger placed within reach. bed alarm on for patient safety. patient instructed to call for assistance when needed.
[2018-11-30] VITALS (7 sets, daily range): BP systolic 101–117; BP diastolic 50–65
--- NOTE | 2018-11-30 07:00 | NUR ---
Report and round completed, pt in bed resting no issues, c/o or concerns at this time.
[2018-11-30] MEDS: FAMOTIDINE 20 MG TAB PO SCH ×2 (08:06→17:01)
[2018-11-30] MEDS: ACETAMINOPHEN 325 MG TAB PO PRN ×2 (08:10→17:03)
--- NOTE | 2018-11-30 08:45 | Diagnostic Imaging Report ---
Examination: Single AP view of the chest. COMPARISON: None. INDICATION: Preoperative study DISCUSSION: The lungs are well-inflated. No focal consolidation, pleural effusion, or pneumothorax. There is mild coarse prominence of the pulmonary interstitium which likely reflects mild age-related fibrotic change. Heart size is normal with tortuosity and atherosclerotic calcification of the thoracic aorta. No pulmonary edema. No acute osseous abnormality. Partially visualized irregularity of the midshaft of the right humerus likely reflects a posttraumatic deformity. IMPRESSION: No acute cardiopulmonary abnormality. Signed by: Dr. Ayad Mock M.D. on 11/30/2018 8:41 AM
[2018-11-30] MEDS ORDERED: CEFAZOLIN SOD 1 GM/NS 50ML 100 ML IV ONE (16:30)
--- NOTE | 2018-11-30 16:35 | NUR ---
Dr Oconnor here and requesting Dr Siu be called with EKG results and verify that patient cleared for surgery.
--- NOTE | 2018-11-30 16:44 | NUR ---
Dr Siu notified that Dr Oconnor requesting clearance because abnormal EKG. Consult Dr Harrison for [facility] clearance.
[2018-11-30] MEDS: ENOXAPARIN SOD INJ 40 MG/0.4 ML SYR SC SCH (17:00)
[2018-11-30] MEDS: CEFTRIAXONE SOD 1 GM/NS 50 ML 50 ML IV SCH (17:01)
--- NOTE | 2018-11-30 17:15 | NUR ---
dr castillo here okd pt for surgery in am,ordered echo,.shop tech notified by boiler house inspector.
--- NOTE | 2018-11-30 18:19 | NUR ---
In bed resting watching tv. No complains or concerns at this time. Instructed to call for assistance if needed. [place] traction in correct position
--- NOTE | 2018-11-30 18:49 | Consultation ---
DATE OF CONSULTATION: CARDIOLOGY CONSULTATION REQUESTING PHYSICIAN: Dr. Siu. REASON FOR CONSULTATION: Preop clearance. HISTORY OF PRESENTING ILLNESS: Ms. Fountain is a 78-year-old lady with past medical history as listed below, apparently was walking when she tripped and fell down on the 15 of November. She reportedly was trying to take the trash out. She was taken to [facility] and subsequently discharged. She continued to have some pain in her right leg and was unable to walk and so was brought to here. She is noted to have a right hip fracture and is scheduled to have surgery. She denies any chest pain, shortness of breath or palpitations. REVIEW OF SYMPTOMS CONSTITUTIONAL: Has some fatigue and weakness. HEENT: No headache, blurry vision, seizure or syncope. CARDIOVASCULAR: No chest pain, dyspnea, orthopnea, PND. RESPIRATORY: No cough, fever or expectoration. GI: No abdominal pain, vomiting, diarrhea. : No dysuria, frequency, incontinence. ALLERGIES TO MEDICATION: NO KNOWN DRUG ALLERGIES. MEDICATIONS: See list. PAST MEDICAL HISTORY: No significant past medical history. SOCIAL HISTORY: Does not smoke or drink. She lives with her son. FAMILY HISTORY: Noncontributory. PHYSICAL EXAMINATION GENERAL: A moderately built and nourished lady, awake, alert, not in any obvious distress. VITALS: Heart rate is 80. Blood pressure 104/60. Respiratory rate is 18. Temperature is 99. HEENT: Atraumatic. NECK: No JVD, bruit, thyromegaly, lymphadenopathy. CARDIOVASCULAR: First and second heart sounds heard. No murmurs, rubs or gallops appreciated. CHEST: Clear to auscultation. ABDOMINAL: Soft, nontender. EXTREMITIES: No edema. LABORATORY DATA: WBC is 10.5, hemoglobin 11.2, hematocrit 33.5, platelets of 521. Sodium is 134, potassium 4.3, chloride is 101, bicarb is 24, BUN is 14, creatinine 0.7, and glucose is 98. Troponin is less than 0.001. EKG shows sinus rhythm at 90 beats per minute, normal axis, normal intervals, poor R-wave progression in V1 to V3, no acute ST-T changes. Venous Doppler is negative for DVT. INTERPRETATION 1. Status post fall. 2. Right hip fracture. 3. Urinary tract infection. PLAN 1. Patient has no known cardiac issues. 2. EKG shows sinus rhythm with poor R-wave progression. 3. She is essentially asymptomatic from a cardiac point of view. 4. Will get an echocardiogram to assess LV function and valvular function. 5. Patient could proceed with surgery from a cardiac point of view. I have discussed my impression and plan of management with the patient. As always, appreciate and thank you very much for you referrals. Job#: [id number] EV
--- NOTE | 2018-11-30 19:00 | NUR ---
patient recieved awake, alert, but confused x 2. no c/o pain noted. bucks traction 5lbs remains to right lower extremity. pm assessment complete. call jaeger within reach. patient instructed to call for assistance when needed.
[2018-11-30] MEDS: SODIUM CHLORIDE 0.9% 1000ML 1,000 ML IV SCH (23:59)
[2018-12-01] VITALS: BP 110/56
[2018-12-01 04:00] VITALS: BP 106/52
--- NOTE | 2018-12-01 05:25 | NUR ---
patient appears to be resting quietly. no c/o pain noted throughout the night. bath given this am and skin care provided.
[2018-12-01 07:15] VITALS: BP 99/50
--- NOTE | 2018-12-01 07:15 | NUR ---
PATIENT OUT OF BED TO CHAIR WATCHING TV, NO RESPIRATORY DISTRESS OBSERVED. 1:1 SITTER AT BED SIDE. BRUISES TO BOTH ARMS, SOME EDEMA TO LOWER EXTREMITIES. CALL LIGHT AT EASY REACH. Addendum: 12/01/18 at 0749 by Ese Lugo RN WRONG PATIENT.
--- NOTE | 2018-12-01 07:16 | NUR ---
PATIENT IN BED RESTING WITH NO RESPIRATORY DISTRESS. BRAY TRACTION TO RIGHT FOOT, DENIED PAIN AT THIS TIME. BED IN LOWER POSITION, CALL LIGHT AT REACH.
[2018-12-01] MEDS: FAMOTIDINE 20 MG TAB PO SCH ×2 (07:30→18:28)
[2018-12-01 07:58] VITALS: BP 99/50
[2018-12-01] MEDS ORDERED: BACITRACIN 50,000 UNIT VIAL ONE (08:42)
[2018-12-01] MEDS: SODIUM CHLORIDE 0.9% 1000ML 1,000 ML IV SCH ×2 (09:59→19:59)
--- NOTE | 2018-12-01 10:28 | NUR ---
PATIENT OFF UNIT TO OR.
--- NOTE | 2018-12-01 13:38 | Diagnostic Imaging Report ---
Exam: Hip one view History: X-ray for positioning. Comparison: None. Findings: See impression Impression: Partially visualized right hip hemiarthroplasty. The proximal portion is partially obscured. No complication. Signed by: Dr. Manan Chavez M.D. on 12/01/2018 1:34 PM
[2018-12-01] MEDS ORDERED: SODIUM CHLORIDE 0.9% 1000ML 1,000 ML IV SCH (13:57)
[2018-12-01] MEDS ORDERED: ONDANSETRON HCL INJ 2MG/ML 2ML 2 MG/ML VIAL IV PRN (14:00)
[2018-12-01] MEDS ORDERED: CEFAZOLIN SOD 1 GM/NS 50ML 50 ML IV SCH (14:00)
--- NOTE | 2018-12-01 15:24 | Diagnostic Imaging Report ---
Exam: Right hip 2 views History: Postoperative evaluation Comparison: None. Findings: See impression Impression: Right hip hemiarthroplasty in expected alignment. No loosening or periprosthetic fracture. Postsurgical change. Signed by: Dr. Manan Chavez M.D. on 12/01/2018 3:20 PM
[2018-12-01] MEDS: HYDROCODONE/APAP 5MG-325MG TAB PO PRN (15:54)
[2018-12-01] MEDS ORDERED: HYDROCODONE/APAP 5MG-325MG TAB ONE (15:55)
--- NOTE | 2018-12-01 16:31 | NUR ---
PT ABLE TO PROVIDE NAME AND . IMM LETTER WAS EXPLAINED. NOTED PT WAS PLEASANTLY CONFUSED. PT INSISTED SHE COULD SIGN HER OWN IMM. PT ALLOWED TO SIGN. COPY TO CHART AND COPY TO PT. WILL F/U W SON PRIOR TO DC.
--- NOTE | 2018-12-01 16:41 | NUR ---
received report from casper is pacu. pt has a right hip arthroplasty awaiting for pt to arrive to unit
[2018-12-01] MEDS: ENOXAPARIN SOD INJ 40 MG/0.4 ML SYR SC SCH (17:00)
--- NOTE | 2018-12-01 17:32 | NUR ---
PATIENT WAS TRANSFERRED FROM OR TO MED SURG 1. REPORT CALLED AND GIVEN TO RECEIVING NURSE. ALL PERSONAL ITEMS GIVEN TO FAMILY.
--- NOTE | 2018-12-01 17:50 | NUR ---
received pt floor aax1. pt has a hx of dementia. son is at bedside. pt denies any pain at this time. right hip dressing is dry and intact. abductor pillow in place. foot pumps on. air mattress on. pt has a right wrist 20 g with ns at 50. ordered tray for pt at this time .will continue to care , side railsx2, bed alarm on, call light is within easy reach, instructed to call for assistance if needed
[2018-12-01] MEDS ORDERED: SEVOFLURANE INHAL SOLN 250 ML PEN BTL ONE (17:55)
[2018-12-01] MEDS ORDERED: DEXAMETHASONE SOD PHOS INJ 4 MG/ML VIAL ONE (17:55)
[2018-12-01] MEDS ORDERED: PROPOFOL IV EMULSION 10 MG/ML 20 ML VIAL ONE (17:55)
[2018-12-01] MEDS ORDERED: ONDANSETRON HCL INJ 2MG/ML 2ML 2 MG/ML VIAL ONE (17:55)
[2018-12-01] MEDS ORDERED: LIDOCAINE HCL 2% LOCAL INJ 5 ML SDV VIAL INJ ONE (17:55)
[2018-12-01] MEDS ORDERED: GLYCOPYRROLATE INJ 1MG/ 5 ML SYR ONE (17:55)
[2018-12-01] MEDS ORDERED: ROCURONIUM BROMIDE 10 MG/ML 5ML VIAL ONE (17:55)
[2018-12-01] MEDS ORDERED: NEOSTIGMINE 5 MG/5ML SYR ONE (17:55)
[2018-12-01 17:56] VITALS: BP 112/55
[2018-12-01] MEDS ORDERED: FENTANYL CITRATE/PF 100MCG/2 ML INJ ONE (18:09)
--- NOTE | 2018-12-01 18:24 | NUR ---
md sy orders to start xarelto tomorrow. orders received
--- NOTE | 2018-12-01 18:24 | NUR ---
md sy states not to give lovenox at this time
[2018-12-01] MEDS: CEFTRIAXONE SOD 1 GM/NS 50 ML 50 ML IV SCH (18:28)
[2018-12-01] MEDS: CEFAZOLIN SOD 1 GM/NS 50ML 50 ML IV SCH (18:38)
[2018-12-01 20:00] VITALS: BP 100/51
[2018-12-02] VITALS (8 sets, daily range): BP systolic 97–107; BP diastolic 50–54
[2018-12-02] MEDS: CEFAZOLIN SOD 1 GM/NS 50ML 50 ML IV SCH ×2 (03:28→10:19)
[2018-12-02] MEDS: SODIUM CHLORIDE 0.9% 1000ML 1,000 ML IV SCH ×2 (05:59→15:59)
[2018-12-02 06:05] LABS: HEMATOCRIT 25.5 % (34.2-44.1); HEMOGLOBIN 8.5 g/dL (12.0-16.0)
[2018-12-02] MEDS: FAMOTIDINE 20 MG TAB PO SCH ×2 (07:49→17:17)
--- NOTE | 2018-12-02 07:50 | NUR ---
IMM FILED ON CHART, CHOICE SIGNED AND FILED ON CHART FOR [facility]. RTF COMPLETED AND PUT AT NURSES STATION 1. HAD ALL INFORMATION YESTERDAY BUT PT WAS IN RECOVERY AND DID NOT HAVE ACCESS TO CHART TO FILE UNTIL TODAY. POST DISCHARGE STATUS FORM FILED IN FRONT OF CHART WITH [facility].
[2018-12-02] MEDS: ACETAMINOPHEN 325 MG TAB PO PRN ×2 (10:20→17:18)
--- NOTE | 2018-12-02 13:28 | NUR ---
md sy states pt is to not get transferred today if bed available due to low hgb. md garnica will assess hgb tomorrow. holding dc at this time
--- NOTE | 2018-12-02 13:39 | NUR ---
SPOKE WITH DR GRAFF, HE STATES HE WILL SPEAK WITH SON ABOUT CHOICE, PT WILL NEED HOME CARE PHYSICAL THERAPIST AFTER THERAPY. GAVE FACILITIES IN NETWORK AND HE WAS GOING TO GIVE HIS RECOMMENDATION. FAXED PT NOTES AND MED LIST AND PUT WITH CLINICALS TO KEEP UPDATED, WILL PROCEED WITH TRANSFER TO SNF IN PROGRESS UNTIL ADVISED TO GO IN OTHER DIRECTION.
--- NOTE | 2018-12-02 14:56 | NUR ---
Nutrition Intervention Note RD Recommendation(s) for Physician: - Continue cardiac diet as ordered Plan of Care: RD following, monitoring for tolerance and adequacy Nutrition reason for involvement: Follow up RD Assessment 12/02 S/p hip surgery on 12/01. POD 1. Visited pt in the room. Pt ate 100% of her lunch today. Pt reported good appetite since admission. No GI complains noted. LBM 12/01. No chewing or swallowing issue reported. Will continue to monitor and follow. 11/26 78 yo F, who is admitted s/p fall at home. Visited pt in the room. Unable to obtain hx from pt due to AMS. Son on bedside provided hx. Per son, pt hasnt been drinking or eating much for the last 3-4 months. Son thinks that pt has lost ~10% since then. Reported UBW ~104lbs. No GI complains noted today. Pt was able to chew and swallow without any issue. Will continue to monitor and follow. Principal Problems/Diagnoses: 1. Metabolic encephalopathy with underlying possible Alzheimer's dementia likely due to urinary tract infection. 2. Right leg pain: Status post fall. PMH: none GI: Abdomen soft, non-tender, LBM 12/02 Skin: Stage I left sacrum wound, per RN Labs: reviewed Meds: Lovenox Ht: 59in Wt: 90lb BMI: 18.2kg/m2 IBW: 95lb Malnutrition Evaluation (11/26/2018) The patient meets criteria for MODERATE protein-calorie malnutrition. Energy intake: <75% of estimated energy requirements for >3 months Weight loss: >7.5% in 3 months (Acute) Fat loss: Moderate clavicle protrusion Muscle loss: Moderate temporal depression Supporting Evidence: Fluid accumulation: unable to evaluate Functional Status: measurably reduced Nutrition Prescription (Diet Order): cardiac diet Estimated Nutritional Needs: Calories: 1230 1435kcal (30-35kcal/kg/d) Weight used : current BW Protein: 62 82g (1.5-2g/kg/d) Weight used: current BW Diet Adequacy: Meeting protein needs, meeting calorie needs. Diet Education Needs Assessment: Diet education indicated, but patient not appropriate for education at this time. Nutrition Care Level: low Nutrition Diagnosis: Malnutrition related to chronic illness as evidenced by weight loss and decreased meal intake LIGHTER CAPTAIN. Goal: Patient will meet 75-100% of estimated needs by follow up Progress: Goal met Interventions: mineral-modified diet Monitoring/Evaluation: Total energy intake, Total protein intake, Modified diet, Weight change Signed: Darcie Morgan MS, RD, LD
[2018-12-02] MEDS: RIVAROXABAN 10 MG TABLET PO SCH (17:17)
--- NOTE | 2018-12-02 17:18 | NUR ---
SPOKE WITH MD ANDREWS ABOUT XARELTO DOSAGE. STATE TO GIVE DOSE TODAY.
--- NOTE | 2018-12-02 19:20 | NUR ---
REPORT TAKEN FROM AM RN.WALKING ROUNDS DONE.OLMEDO IS IN PLACE.IV TO R FA.FOOT PUMP IS IN PLACE.TELE RHYTHM MONITORED.KEEP MONITOR THE PT.
--- NOTE | 2018-12-02 21:00 | NUR ---
Assessment done.aaox3.no resp.distress.dressing site is dry and intact.martinez care given.bed alarm on. bed locked and in lowest position.phone and call light within reach.instructed to call for assistance as needed.denied pain medicine.
[2018-12-03] VITALS (7 sets, daily range): BP systolic 100–161; BP diastolic 52–70
[2018-12-03] MEDS: ACETAMINOPHEN 325 MG TAB PO PRN ×3 (00:35→20:05)
[2018-12-03] MEDS: HYDROCODONE/APAP 5MG-325MG TAB PO PRN ×2 (00:35→09:56)
[2018-12-03] MEDS: SODIUM CHLORIDE 0.9% 1000ML 1,000 ML IV SCH ×3 (01:59→20:11)
--- NOTE | 2018-12-03 05:07 | NUR ---
Bess d/c @ 0500am.pt is due to void.
[2018-12-03 05:59] LABS: HEMATOCRIT 23.5 % (34.2-44.1); HEMOGLOBIN 7.8 g/dL (12.0-16.0)
--- NOTE | 2018-12-03 06:14 | NUR ---
DRESSING CHANGED.DRY AND INTACT.PT TOLERATED WELL.
--- NOTE | 2018-12-03 06:50 | NUR ---
REPORT GIVEN TO THE ONCOMING RN.WALKING ROUNDS DONE.STABLE CONDITION.
[2018-12-03 09:31] LABS: ALANINE AMINOTRANSFERASE 34 IU/L (0-55); ALBUMIN 2.2 g/dL (3.5-5.0); ALBUMIN/GLOBULIN RATIO 0.7 (0.8-2.0); ALKALINE PHOSPHATASE 126 IU/L (40-150); ANION GAP 13.6 mmol/L (8-16); BLOOD UREA NITROGEN 11 mg/dL (7-26); BUN/CREATININE RATIO 15 (6-25); CALCIUM 8.3 mg/dL (8.4-10.2); CARBON DIOXIDE 21 mmol/L (22-29); CHLORIDE 106 mmol/L (98-107); CREATININE, SERUM 0.71 mg/dL (0.57-1.11); EST GLOMERULAR FILTRATION RATE > 60 ML/MIN (60-); GLUCOSE 179 mg/dL (74-118); POTASSIUM 3.6 mmol/L (3.5-5.1); SODIUM 137 mmol/L (136-145)
[2018-12-03] MEDS ORDERED: SODIUM CHLORIDE 0.9% 250ML 250 ML IV ONE (09:45)
[2018-12-03] MEDS: FAMOTIDINE 20 MG TAB PO SCH ×2 (09:52→17:45)
--- NOTE | 2018-12-03 10:36 | NUR ---
IMM EXPLAINED TO PT, SIGNED BY PT AND PLACED IN CHART COPY TO PT IN CARE TRANSITION FOLDER
[2018-12-03 12:35] LABS: BASOPHILS # (AUTO) 0.1 (0.0-0.1); BASOPHILS % 0.7 % (0.0-1.0); EOSINOPHILS # (AUTO) 0.1 (0.0-0.4); EOSINOPHILS % 0.5 % (0.0-6.0); HEMATOCRIT 24.1 % (34.2-44.1); HEMOGLOBIN 8.1 g/dL (12.0-16.0); LYMPHOCYTES # (AUTO) 1.3 (1.0-3.2); MEAN CORPUSCULAR HEMOGLOBIN 30.9 pg (28-32); MEAN CORPUSCULAR HGB CONC 33.6 g/dL (31-35); MONOCYTES % 9.5 % (4.4-11.3); NEUTROPHILS # (AUTO) 8.3 (2.1-6.9); NEUTROPHILS % 76.8 % (38.7-80.0); PLATELET COUNT 364 x10e3/uL (140-360); RED BLOOD COUNT 2.62 x10e6/uL (3.6-5.1); RED CELL DISTRIBUTION WIDTH 12.3 % (11.7-14.4)
[2018-12-03] MEDS ORDERED: SODIUM CHLORIDE 0.9% 250ML 250 ML ONE (14:09)
[2018-12-03] MEDS: RIVAROXABAN 10 MG TABLET PO SCH (17:00)
--- NOTE | 2018-12-03 17:30 | Consultation ---
DATE OF CONSULTATION: INFECTIOUS DISEASE CONSULTATION REASON FOR CONSULTATION: Fever. HISTORY OF PRESENT ILLNESS: This is a patient who is a 78-year-old white female with no significant past medical history. She has presented November 25, 2018, with confusion, difficulty walking. The patient apparently on November 15 fell while taking her trash to the curb. She was subsequently found by the man who delivered her newspaper, called 911, and she was taken to [facility]. She was evaluated. The patient is not a good source of information, but apparently since her fall she could not walk and pain in her legs, mainly the right leg. She was brought to the emergency room on November 25 for evaluation. She has been seen by Neurology. Upon evaluation her laboratory data showed a white count 11.4. Her urinalysis with trace protein. CAT scan of the brain was done, showed no evidence of recent ischemic changes but there is diffuse atrophy. Patient was admitted with encephalopathy. Patient was evaluated by Cardiology and Orthopedic. The patient had right hip fracture, is scheduled to have surgery. We discussed that she is also diagnosed with UTI on December 01. Underwent right hip femur arthroplasty. Patient had fever; so, I was asked to see her. I reviewed her temperature curve. The patient is found to have fever on December 02. There was no fever before that. The patient does not really provide any meaningful information or complaints at the present time. Her review of systems still seems negative, but the patient is confused. So, it is very hard to tell, but I did review her laboratory data. Her blood cultures are negative. Her urine cultures on November 25 show Strep viridans. White count 9.2, hemoglobin 11, hematocrit is 32. Her sodium 136, potassium 4.1 and creatinine 0.74. The patient has been on Tylenol. She received Rocephin apparently. PHYSICAL EXAMINATION GENERAL: She is currently alert, confused, does not seem to be in acute distress. VITAL SIGNS: Stable. Currently has a low fever. HEENT: She does not appear icteric. Normocephalic. NECK: Supple. No JVD, no lymphadenopathy, no thyromegaly. CHEST: Clear bilaterally. HEART: S1 and S2. No S3 or S4, no murmur. ABDOMEN: Soft. Bowel sounds present. No tenderness. No hepatosplenomegaly. EXTREMITIES: No edema. The patient did receive ceftriaxone from November 25 until February 14. IMPRESSION: Fever, hospital-acquired in this patient status post surgery. Clinically she looks good. The wound looks good. Her CBC was within normal limits. She is receiving blood at the present time. I would suggest, since we just stopped the Rocephin yesterday, to wait one more day and reassess in the morning. Obtain CBC, amylase, lipase, inflow calcitonin. Will follow. Job#: [id number] EV
--- NOTE | 2018-12-03 19:10 | NUR ---
REPORT RECEIVED FROM OFF GOING NURSE, PT RESTING IN BED ALERT, NO DISTRESS NOTED, DOOR WORKER NOTED, BED ALARM ACTIVATED, CALL LIGHT IN REACH INSTRUCTED TO CALL WITH NEEDS
[2018-12-04] VITALS (7 sets, daily range): BP systolic 106–131; BP diastolic 55–72
--- NOTE | 2018-12-04 05:49 | NUR ---
PT RESTING IN BED ALERT, NO DISTRESS NOTED, DIAPER CHANGED, PT REPOSITIONED IN BED, DENIES NEEDS, DENIES PAIN, DRESSING TO RIGHT HIP C/D/I, TELEMETRY NOTED, BED ALARM ACTIVATED, IV INFUSING PER ORDER, CALL LIGHT IN REACH, INSTRUCTED TO CALL WITH NEEDS Addendum: 12/04/18 at 0551 by ARVIND CROWDER RN POST SURGICAL HIP PILLOW BETWEEN KNEES
[2018-12-04 06:28] LABS: BASOPHILS # (AUTO) 0.1 (0.0-0.1); BASOPHILS % 0.5 % (0.0-1.0); EOSINOPHILS # (AUTO) 0.2 (0.0-0.4); EOSINOPHILS % 1.7 % (0.0-6.0); HEMATOCRIT 34.9 % (34.2-44.1); HEMOGLOBIN 11.9 g/dL (12.0-16.0); LYMPHOCYTES # (AUTO) 1.4 (1.0-3.2); LYMPHOCYTES % 14.2 % (18.0-39.1); MEAN CORPUSCULAR HEMOGLOBIN 29.2 pg (28-32); MEAN CORPUSCULAR HGB CONC 34.1 g/dL (31-35); MEAN CORPUSCULAR VOLUME 85.7 fL (81-99); MONOCYTES # (AUTO) 0.8 (0.2-0.8); MONOCYTES % 7.6 % (4.4-11.3); NEUTROPHILS # (AUTO) 7.6 (2.1-6.9); NEUTROPHILS % 75.4 % (38.7-80.0); PLATELET COUNT 286 x10e3/uL (140-360); RED BLOOD COUNT 4.07 x10e6/uL (3.6-5.1); RED CELL DISTRIBUTION WIDTH 13.7 % (11.7-14.4)
[2018-12-04 06:52] LABS: ALANINE AMINOTRANSFERASE 42 IU/L (0-55); ALBUMIN/GLOBULIN RATIO 0.7 (0.8-2.0); ALKALINE PHOSPHATASE 117 IU/L (40-150); BLOOD UREA NITROGEN 11 mg/dL (7-26); BUN/CREATININE RATIO 18 (6-25); CALCIUM 8.3 mg/dL (8.4-10.2); CARBON DIOXIDE 21 mmol/L (22-29); CHLORIDE 106 mmol/L (98-107); CREATININE, SERUM 0.62 mg/dL (0.57-1.11); EST GLOMERULAR FILTRATION RATE > 60 ML/MIN (60-); GLUCOSE 100 mg/dL (74-118); SODIUM 136 mmol/L (136-145)
[2018-12-04] MEDS: FAMOTIDINE 20 MG TAB PO SCH ×2 (09:02→16:49)
[2018-12-04] MEDS: CYANOCOBALAMIN INJ 1,000 MCG/ML VIAL IM SCH (09:02)
[2018-12-04] MEDS ORDERED: CEFEPIME HCL 1 GM VIAL IV SCH (16:00)
--- NOTE | 2018-12-04 16:15 | NUR ---
SPOKE TO ORIANA NINA, SON AT [phone], REGARDING HIS MOTHER'S INCREASE OF FEVER FROM AROUND 99-100 THAT HAS RISEN TO 102.1, INFORMED HIM THAT HIS MOTHER WILL BE RECEIVING VANCOMYCIN 1 GM AND CEFEPIME EVERY 12 HOURS, THE CT OF ABDOMEN AND PELVIS WITH CONTRAST IN THE MORNING AND A SERUM QUANTITY CHECK OF THE AMOUNT OF VANCOMYCIN IN RUBA BLOOD AFTER THE 3RD DOSE.
[2018-12-04] MEDS: RIVAROXABAN 10 MG TABLET PO SCH (16:49)
[2018-12-04] MEDS: CEFEPIME 1GM/NS 0.9% 50 ML 50 ML IV SCH (16:50)
[2018-12-04] MEDS: VANCOMYCIN 1GM/NS 250 ML 250 ML IV SCH (17:44)
[2018-12-04] MEDS: ACETAMINOPHEN 325 MG TAB PO PRN (17:47)
--- NOTE | 2018-12-04 19:10 | NUR ---
REPORT RECEIVED FROM OFF GOING NURSE, PT RESTING IN BED ALERT AND PLEASANTLY CONFUSED, BED ALARM ACTIVATED, BED LOCKED AND LOW, TELEMETRY NOTED, CALL LIGHT IN REACH, INSTRUCTED TO CALL WITH NEEDS
[2018-12-05] VITALS (8 sets, daily range): BP systolic 105–123; BP diastolic 55–59
[2018-12-05] MEDS: CEFEPIME 1GM/NS 0.9% 50 ML 50 ML IV SCH ×2 (03:19→18:05)
--- NOTE | 2018-12-05 04:44 | NUR ---
PT RESTING IN BED ALERT, BED LOCKED AND LOW, PTs DIAPER CHANGED , PT REPOSITIONED IN BED, ADDUCTION PILLOW BETWEEN KNEES, NO COMPLICATIONS NOTED, BILATERAL FOOT PUMPS ACTIVATED, BED LOCKED AND LOW, BED ALARM ACTIVATED, TELEMETRY NOTED, CALL LIGHT IN REACH, INSTRUCTED TO CALL WITH NEEDS
[2018-12-05] MEDS: VANCOMYCIN 1GM/NS 250 ML 250 ML IV SCH ×2 (05:12→18:44)
--- NOTE | 2018-12-05 10:05 | Diagnostic Imaging Report ---
EXAM: CT Abdomen and Pelvis WITH contrast INDICATION: Increasing fever. COMPARISON: None. TECHNIQUE: Abdomen and pelvis were scanned utilizing a multidetector helical scanner from the lung base to the pubic symphysis after administration of IV contrast. Coronal and sagittal reformations were obtained. Routine protocol was performed. Scan was performed when during portal venous phase. IV CONTRAST: 100 cc of Isovue 370 ORAL CONTRAST: Water COMPLICATIONS: None RADIATION DOSE: Total DLP: 254.5 mGy*cm Estimated effective dose: (DLP x 0.015 x size factor) mSv CTDIvol has been reviewed. It is below the limits set by the Radiation Protocol Committee (RPC). Dose modulation, iterative reconstruction, and/or weight based adjustment of the mA/kV was utilized to reduce the radiation dose to as low as reasonably achievable. FINDINGS: LINES and TUBES: None. LOWER THORAX: Minimal dependent atelectasis. HEPATOBILIARY: Subcentimeter hepatic hypodensities are too small to characterize, but likely represent cysts. No biliary ductal dilation. The gallbladder is unremarkable. SPLEEN: No splenomegaly. PANCREAS: No focal masses or ductal dilatation. ADRENALS: No adrenal nodules KIDNEYS/URETERS: Kidneys enhance symmetrically. No evidence of hydronephrosis, solid mass, or stone. Subcentimeter bilateral renal hypodensities are too small to characterize, but likely represent cysts. GI TRACT: No evidence of wall thickening or bowel obstruction. Appendix is normal. Stool is noted within the rectum, measuring up to 7.5 cm. PELVIC ORGANS/BLADDER: There is air within the bladder, likely related to recent instrumentation. Limited evaluation due to streak artifact from right hip hardware. LYMPH NODES: No lymphadenopathy. VESSELS: Scattered minimal atherosclerotic changes of the abdominal aorta and branch vessels. PERITONEUM / RETROPERITONEUM: No free air or fluid. BONES AND SOFT TISSUES: Diffuse osteopenia. Age indeterminate mild loss of vertebral body height at the T12 level. Acute/subacute fracture of the L1 vertebral body with vertical fracture line is visible anteriorly. There is 3 mm of posterior bony retropulsion and mild central canal narrowing. Partially seen right total hip arthroplasty. Visualized hardware appears intact. There are surgical david overlying the right lateral thigh. There is subcutaneous and intramuscular gas and soft tissue edema within the right thigh region, likely reflecting recent surgery. CONCLUSION: No source of intraabdominal infection identified. Air within the bladder, likely reflecting recent instrumentation. Status post right total hip arthroplasty. Right lateral thigh david, subcutaneous edema and foci of gas likely reflecting recent surgery. Acute/subacute severe wedge compression fracture at L1 with 3 mm of posterior bony retropulsion. Age indeterminate mild loss of vertebral body height at T12. The above findings were discussed with JADEN Ibarra on 12/05/2018 at 1000 AM, who responded indicating that the communication was understood. Signed by: Dr. Diana Joseph MD on 12/05/2018 10:01 AM
[2018-12-05] MEDS: FAMOTIDINE 20 MG TAB PO SCH ×2 (10:09→18:04)
--- NOTE | 2018-12-05 10:26 | NUR ---
DR. GRAFF ANSWERING SERVICE CALLED REGARDING NEW REPORT OF AUCUE/SUBACUTE SEVER WEDGE COMPRESSION FRACTURE AT L1 WITH 3 MM OF POSTERIOR BONY RETROPULSION, SPOKE TO SPIKE.
[2018-12-05 12:11] LABS: BILIRUBIN,URINE NEGATIVE (NEGATIVE); CLARITY,URINE CLEAR (CLEAR); COLOR,URINE YELLOW (YELLOW); KETONES,URINE NEGATIVE (NEGATIVE); LEUKOCYTE ESTERASE ,URINE NEGATIVE (NEGATIVE); NITRITE,URINE NEGATIVE (NEGATIVE); PROTEIN,URINE DIPSTICK NEGATIVE (NEGATIVE); URINE UROBILINOGEN 0.2 mg/dL (0.2 - 1)
--- NOTE | 2018-12-05 12:50 | NUR ---
SPOKE WITH DR BYRNES RE: CT RESULTS AND CONSULT, NEW ORDERS NOTED.
[2018-12-05] MEDS ORDERED: SODIUM CHLORIDE 0.9% 50ML 50 ML ONE (18:03)
[2018-12-05] MEDS ORDERED: IOPAMIDOL 370 MG/ML 200 ML INFUS..BTL INJ ONE (18:03)
[2018-12-05] MEDS: RIVAROXABAN 10 MG TABLET PO SCH (18:05)
--- NOTE | 2018-12-05 19:23 | NUR ---
received report from day nurse. patient is resting comfortably in bed. bed is in lowest position and call jaeger is within reach. will continue to monitor patient.
[2018-12-06] VITALS (7 sets, daily range): BP systolic 104–131; BP diastolic 53–63
[2018-12-06] MEDS: CEFEPIME 1GM/NS 0.9% 50 ML 50 ML IV SCH (05:12)
[2018-12-06 05:15] LABS: BASOPHILS # (AUTO) 0.1 (0.0-0.1); BASOPHILS % 0.6 % (0.0-1.0); EOSINOPHILS # (AUTO) 0.2 (0.0-0.4); EOSINOPHILS % 1.9 % (0.0-6.0); HEMATOCRIT 36.3 % (34.2-44.1); HEMOGLOBIN 12.2 g/dL (12.0-16.0); LYMPHOCYTES # (AUTO) 1.3 (1.0-3.2); LYMPHOCYTES % 12.8 % (18.0-39.1); MEAN CORPUSCULAR HEMOGLOBIN 29.2 pg (28-32); MEAN CORPUSCULAR HGB CONC 33.6 g/dL (31-35); MEAN CORPUSCULAR VOLUME 86.8 fL (81-99); MONOCYTES # (AUTO) 0.8 (0.2-0.8); MONOCYTES % 7.9 % (4.4-11.3); NEUTROPHILS # (AUTO) 7.7 (2.1-6.9); NEUTROPHILS % 76.1 % (38.7-80.0); PLATELET COUNT 344 x10e3/uL (140-360); RED BLOOD COUNT 4.18 x10e6/uL (3.6-5.1); RED CELL DISTRIBUTION WIDTH 13.2 % (11.7-14.4)
[2018-12-06 05:47] LABS: ALANINE AMINOTRANSFERASE 66 IU/L (0-55); ALBUMIN 1.9 g/dL (3.5-5.0); ALBUMIN/GLOBULIN RATIO 0.6 (0.8-2.0); ALKALINE PHOSPHATASE 125 IU/L (40-150); BLOOD UREA NITROGEN 12 mg/dL (7-26); BUN/CREATININE RATIO 20 (6-25); CALCIUM 8.4 mg/dL (8.4-10.2); CARBON DIOXIDE 21 mmol/L (22-29); CHLORIDE 100 mmol/L (98-107); EST GLOMERULAR FILTRATION RATE > 60 ML/MIN (60-); GLUCOSE 103 mg/dL (74-118); SODIUM 131 mmol/L (136-145)
--- NOTE | 2018-12-06 05:57 | NUR ---
received critical vanco trough results. paged. awaiting call back.
--- NOTE | 2018-12-06 06:54 | NUR ---
report given to day nurse. patient is resting in bed. bed is in lowest position and call jaeger is within reach.
--- NOTE | 2018-12-06 07:16 | NUR ---
Rcvd patient in report this am. Patient is asleep in bed at this time. No s/s of distress noted. Call placed to [place], with Dr. Hoover and informed of sergo lopez.
[2018-12-06] MEDS: VANCOMYCIN 1GM/NS 250 ML 250 ML IV SCH (07:28)
--- NOTE | 2018-12-06 07:28 | NUR ---
Spoke with Al and okay to give Vancomycin.
[2018-12-06] MEDS: FAMOTIDINE 20 MG TAB PO SCH ×2 (07:48→17:20)
--- NOTE | 2018-12-06 10:49 | NUR ---
IMM EXPLAINED TO PT, SIGNED BY PT AND PLACED IN CHART COPY TO PT IN CARE TRANSITION FOLDER
--- NOTE | 2018-12-06 10:52 | NUR ---
FAXED UPDATED CLINICALS TO [facility],
--- NOTE | 2018-12-06 13:06 | Diagnostic Imaging Report ---
MRI SPINE LUMBAR WO HISTORY: L1 compression fracture COMPARISON: CT of the lumbar spine 12/05/2018 TECHNIQUE: Sagittal T1, sagittal T2, sagittal STIR, axial T2, axial T2 fat sat, and axial proton density weighted images of the lumbar spine were obtained without contrast. DISCUSSION: Number of non-rib bearing lumbar vertebral bodies: 5. Alignment: Normal lordosis. Subtle lumbar levoscoliosis is centered at L4-L5. Vertebrae: Moderate to severe L1 vertebral compression fracture is associated with diffuse underlying marrow T1 hypointensity and STIR hyperintensity. No definite associated paravertebral and prevertebral mass is seen. Mild fracture retropulsion causes mild canal stenosis at T12-L1 (along with disc bulge and ligamentum flavum thickening). Mild T12 vertebral compression fracture is likely chronic. There is associated mild inflammatory endplate change along a small T12 superior endplate Schmorl's node. There is no significant fracture retropulsion. Mild L2 and L4 vertebral compression deformities are also likely chronic. There is no significant fracture retropulsion. Conus medullaris: Normal, ends at L1-L2. Cauda equina: No masses or arachnoiditis. Posterior paraspinal muscles: Overall well preserved. There is mild paraspinal muscle edema at the lumbosacral junction. Soft tissues: A few small T2 hyperintense lesions in the kidneys and right hepatic lobe are likely cysts. Mild to moderate multilevel disc degeneration is most prominent at L4-L5. There are nonspecific mild inflammatory endplate changes at L4-L5. T11-T12: Disc bulge without significant canal or foraminal stenosis. T12-L1: Mild canal stenosis as described above. No significant foraminal stenosis. L1-L2: Mild canal stenosis due to disc bulge and ligamentum flavum thickening. No significant foraminal stenosis. L2-L3: Mild canal stenosis due to disc bulge and ligamentum flavum thickening. No significant foraminal stenosis. L3-L4: Mild to moderate canal stenosis due to disc bulge and ligamentum flavum thickening. Both lateral recesses are slightly effaced, left slightly greater than right. Mild right and mild to moderate left foraminal stenoses due to disc bulge and facet arthrosis. L4-L5: Mild canal stenosis due to disc bulge and ligamentum flavum thickening. Mild to moderate right and mild left foraminal stenoses due to disc bulge and facet arthrosis. L5-S1: Mild bilateral foraminal stenoses due to disc bulge and facet arthrosis. No significant canal stenosis. Susceptibility artifact from right hip prosthesis is noted IMPRESSION: 1. Moderate to severe L1 vertebral compression fracture may be acute or subacute. Associated mild T12-L1 canal stenosis due to fracture retropulsion, disc bulge, and ligamentum flavum thickening. No definite associated paravertebral or prevertebral mass. 2. Mild T12, L2, and L4 vertebral compression deformities are likely chronic. No significant retropulsion. 3. Mild to moderate multilevel disc degeneration, most prominent at L4-L5. Nonspecific mild inflammatory endplate changes at L4-L5. 4. Mild degenerative canal stenoses from L1-L2 to L4-L5. 5. Mild to moderate multilevel bilateral degenerative foraminal stenoses as described above. Signed by: Dr. Twan Stearns M.D. on 12/06/2018 1:02 PM
--- NOTE | 2018-12-06 15:38 | NUR ---
Call placed to Dr. Carey to inform of MRi results. Office informed to fax results to office. No s/s of distress noted
--- NOTE | 2018-12-06 16:35 | NUR ---
Patient is AAOx2-3 with some confusion. Patient is post op right hip replacement. Dressing to hip clean and dry. Lung jason clear to auscultation. Bowel sounds present x4. Patient ambulates with walker. Patient is unable to call for help. Patient gets up and ambulates on her own without assistance. No edema noted. Patient encouraged to use her incentive spirometer. No s/s of distress noted
[2018-12-06] MEDS: RIVAROXABAN 10 MG TABLET PO SCH (17:20)
--- NOTE | 2018-12-06 21:00 | NUR ---
ASSESSMENT DONE.NO RESP.DISTRESS.NO PAIN VOICED.BED ALARM ON.R.HIP DRESSING DRY AND INTACT.BED LOCKED AND IN LOWEST POSITION.PHONE AND CALLLIGHT WITHIN REACH.INSTRUCTED TO CALL FOR ASSISTANCE NEEDED.KEEP MONITOR THE PT.
[2018-12-07] VITALS (8 sets, daily range): BP systolic 108–117; BP diastolic 55–58
--- NOTE | 2018-12-07 06:00 | NUR ---
HAD SMALL AMOUNT OF FORMED BOWEL MOVEMENT .DRESSING CHANGED.PT TOLERATED WELL.
--- NOTE | 2018-12-07 06:54 | NUR ---
REPORT GIVEN TO THE ONCOMING RN WALKING ROUNDS DONE.STABLE CONDITION.
--- NOTE | 2018-12-07 07:15 | NUR ---
Rcvd patient in report this am. Patient is asleep in bed at this time. No s/s of distress noted
[2018-12-07] MEDS: FAMOTIDINE 20 MG TAB PO SCH ×2 (08:10→16:46)
--- NOTE | 2018-12-07 10:32 | NUR ---
Patient is AAOx2 with some confusion and forgetfulness. Lung jason clear to auscultation. Bowel sounds present x4. Patient had BM today. Post op right hip replacement. Dressing clean and dry. No c/o pain. Right forearm IV in place. Patient ambulates with a rolling walker and assistance.
--- NOTE | 2018-12-07 16:18 | NUR ---
[facility] HAS ACCEPTED, THEY UNDERSTAND PT WILL BE MEDICAID PENDING, THEY WILL COME DO A VISUAL CHECK ON HER TOMORROW. AND LET KNOW THE FINAL DECISION.
[2018-12-07] MEDS: RIVAROXABAN 10 MG TABLET PO SCH (16:46)
--- NOTE | 2018-12-07 22:00 | NUR ---
Assessment done.repositioned.no pain voiced.voided.bed locked and in lowest position.phone and jarek light within reach.instructed to call for assistance as needed.pt is confused @ times.
[2018-12-08] VITALS: BP 109/54
[2018-12-08 04:00] VITALS: BP 106/55
--- NOTE | 2018-12-08 06:50 | NUR ---
Report given to the oncoming rn.walking rounds done.stable condition.
[2018-12-08 08:11] VITALS: BP 106/58
[2018-12-08] MEDS: FAMOTIDINE 20 MG TAB PO SCH ×3 (08:55→16:04)
--- NOTE | 2018-12-08 09:36 | NUR ---
IMM EXPLAINED TO PT, SIGNED AND PLACED IN CHART COPY TO PT IN CARE TRANSITION FOLDER
[2018-12-08 11:32] VITALS: BP 106/69
[2018-12-08 12:49] VITALS: BP 122/56
--- NOTE | 2018-12-08 15:46 | NUR ---
CALLED AND GAVE REPORT TO EPIFANIO STANLEY AT [facility].
[2018-12-08] MEDS: RIVAROXABAN 10 MG TABLET PO SCH (16:04)
[2018-12-08 17:59] VITALS: BP 115/54
== END 2018-12-08 18:37 | DRG 469 ==
LOC: ER 13:33 → ERHOLD 14:55 → MED/SURG3 18:11 → OBSVTOIN 11-26 08:53 → MED/SURG 12-01 17:38
PROVIDERS: ADMIT Internal Medicine; ATTEND Internal Medicine
PROC: 0SRR019 Replacement of Right Hip Joint, Femoral Surface with Metal Synthetic Substitute, Cemented, Open Approach (ICD-10-PCS; principal; 2018-12-01 11:30)
PROC: 30233N1 Transfusion of Nonautologous Red Blood Cells into Peripheral Vein, Percutaneous Approach (ICD-10-PCS; 2018-12-03)
DX: S72.011A Unspecified intracapsular fracture of right femur, initial encounter for closed fracture (principal); G93.41 Metabolic encephalopathy; N39.0 Urinary tract infection, site not specified; M48.56XA Collapsed vertebra, not elsewhere classified, lumbar region, initial encounter for fracture; G30.9 Alzheimer's disease, unspecified; W01.0XXA Fall on same level from slipping, tripping and stumbling without subsequent striking against object, initial encounter; E53.8 Deficiency of other specified B group vitamins; R50.9 Fever, unspecified; F02.80 Dementia in other diseases classified elsewhere, unspecified severity, without behavioral disturbance, psychotic disturbance, mood disturbance, and anxiety
CPT/HCPCS: 36415; 70450; 71045; 72148; 73521; 74177; 80053; 80202; 80307; 80320; 81001; 82140; 82550; 82553; 82607; 82746; 82948; 83921; 84207; 84425; 84443; 84484; 85014; 85018; 85025; 86592; 86850; 86900; 86920; 87040; 87086; 88305; 88311; 93005; 93306; 93970; 97139; 99284; C1713; C1776; G0378; J0690; J0692; J0696; J1100; J1650; J2001; J2405; J3370; J3420; J7030; J7050; P9016; Q9967